=== PATIENT | male | born 1975 | race Caucasian/White ===

== ENCOUNTER → 2016-11-30 | Outpatient (CLI) | payer OTHER ==
[~2016-11-30] MED LIST: ALAVERT10 M1 PO; AZOR 5 MG-20 MG1 TA1 PO; BENADRYL50 MG PO; CELEXA20 MG PO; COMBIVENT1 ARO IH; CORDROL20 MG PO; DOXYCYCLINE100 M2 PO; FLEXERIL10 MG PO; HYDROCODONE BIT1 T11 PO; KEFLEX500 MG PO; LOPRESSOR25 MG PO; MEDROL DOSEPAK4 MG PO; PREDNICOT20 MG PO; VIBRAMYCIN100 MG PO; VICODIN 5/500 505 MG PO; ZANAFLEX4 M1 PO
== END | disposition home or self-care (01) ==
LOC: RAD 12:37
DX: M54.42 Lumbago with sciatica, left side (principal)

== ENCOUNTER 2019-09-25 19:17 | Emergency (ER) | payer OTHER ==
[~2019-09-25] VITALS: Ht 182.8 cm; Wt 86.2 kg
[2019-09-25] MEDS ORDERED: FLOVENT DISKUS50 MCG INH (19:35)
[2019-09-25] MEDS ORDERED: CODEINE-GUAIFE120 M1 PO (19:36)
[2019-09-25] MEDS ORDERED: LEVOFLOXACIN500 MG PO (19:36)
[2019-09-25 20:12] LABS: BASO # 0.1 10*3/uL (0.0-0.1); BASO % 0.8 % (0.0-1.0); EOS # 0.4 10*3/uL (0.0-0.4); EOS % 5.2 % (1.0-4.0); HEMATOCRIT 42.7 % (42.0-52.0); HEMOGLOBIN 14.9 g/dl (14.0-18.0); LYMPH # 2.3 10*3/uL (1.3-4.4); LYMPH % 29.9 % (27.0-41.0); MEAN CELL VOLUME 90.3 fl (80.0-94.0); MEAN CORPUSCULAR HGB 31.5 pg (27.0-31.0); MEAN CORPUSCULAR HGB CONC 34.9 g/dl (33.0-37.0); MEAN PLATELET VOLUME 9.4 fl (9.6-12.3); MONO # 0.8 10*3/uL (0.1-1.0); MONO % 10.8 % (3.0-9.0); PLATELET COUNT AUTOMATED 285 10*3/uL (130-400); RED BLOOD COUNT 4.73 10*6/uL (4.50-5.90); RED CELL DISTRI WIDTH 12.8 % (0-14.5); WHITE BLOOD COUNT 7.6 10*3/uL (4.8-10.8)
[2019-09-25 20:16] LABS: BILIRUBIN NEGATIVE (NEGATIVE); BLOOD NEGATIVE (NEGATIVE); CLARITY CLEAR (CLEAR); COLOR STRAW (YELLOW); GLUCOSE NEGATIVE (NEGATIVE); KETONE NEGATIVE (NEGATIVE); LEUKO ESTERASE NEGATIVE (NEGATIVE); NITRITE NEGATIVE (NEGATIVE); UROBILINOGEN 0.2 E.U./dl (0.2-1.0)
[2019-09-25 20:26] LABS: ALBUMIN 3.8 gm/dl (3.1-4.5); ALKALINE PHOSPHATASE 57 U/L (45-117); BUN 22 mg/dl (7-24); CHLORIDE 107 mmol/L (98-107); CREATININE 1.19 mg/dL (0.70-1.30); POTASSIUM 3.7 mmol/L (3.5-5.1); SGOT/AST 30 IU/L (3-35); SGPT/ALT 53 U/L (12-78); SODIUM 141 mmol/L (136-145); TOTAL PROTEIN 7.3 gm/dL (6.4-8.2)
[2019-09-25 21:49] VITALS: BP 135/86
[2019-09-25] MEDS ORDERED: SPIRIVA RESPIMAT4 GM INH (22:40)
[2019-09-25] MEDS ORDERED: PREDNISONE10 MG PO (22:40)
[2019-09-25] MEDS ORDERED: ZYRTEC-D TABLE1 EACH PO (22:40)
[2019-09-25] MEDS ORDERED: Ipratropium Brom3 ML INH (22:43)
== END 2019-09-25 22:55 | disposition home or self-care (01) ==
LOC: ED 19:17
PROVIDERS: Emergency Medicine Emergency Medical Services
DX: J44.1 Chronic obstructive pulmonary disease with (acute) exacerbation (principal); J01.00 Acute maxillary sinusitis, unspecified; I10 Essential (primary) hypertension; J45.909 Unspecified asthma, uncomplicated; Z79.899 Other long term (current) drug therapy; Z88.0 Allergy status to penicillin; Z91.041 Radiographic dye allergy status